=== PATIENT | male | born 1990 | race Caucasian/White ===

== ENCOUNTER 2017-11-12 16:27 | Emergency (ER) | payer OTHER ==
[~2017-11-12] VITALS: Ht 177.8 cm; Wt 144.0 kg
[~2017-11-12 16:27] MED LIST: CEPH500C3 PO
[2017-11-12 16:37] VITALS: BP 173/112; PULSE 115; RESP 20; TEMP 98.5; O2SAT 97
[2017-11-12] MEDS ORDERED: PROPARACAINE HCL 0.5% OPHT SOLN 15 ML BTL EACH EYE ONE (18:45)
[2017-11-12] MEDS ORDERED: ERYTOIN10 RIGHT EYE (18:51)
[2017-11-12] MEDS ORDERED: AUGM875T3 PO (18:51)
--- NOTE | 2017-11-12 18:54 | PD ---
HPI Chief Complaint: Eye Problems/Injury Time Seen by Provider: 18:36 Travel History International Travel<30 days: No Contact w/Intl Traveler<30days: No Traveled to known affect area: No History of Present Illness HPI 26-year-old male presents emergency department with a foreign body sensation of the right eye after getting plaster in his eye from work today that occurred just prior to arrival. States that he was able to remove a couple of pieces of plaster but was still having the foreign body sensation decided to come in today. States he was able to irrigate his eye. Patient denies photophobia, pain with extraocular movements, headache. States most of his discomfort is located in the upper eyelid. Denies visual changes. PFSH Past Medical History Medical History: Denies Significant Hx Diminished Hearing: No Immunizations Current: Yes Tetanus Vaccination: Unknown Influenza Vaccination: No Past Surgical History Surgical History: No Previous Surgery Social History Alcohol Use: No Tobacco Use: No Substance Use: No Allergies-Medications (Allergen,Severity, Reaction): Coded Allergies: midazolam (Unverified Allergy, Mild, MAKES HIM CRAZY, 05/31/17) Reported Meds & Prescriptions Reported Meds & Active Scripts Active Augmentin (Amoxicillin-Clavulanate) 875-125 Mg Tab 1 Tab PO BID 7 Days Erythromycin Opth Oint 5 Mg/Gm Oint 1 Applic RIGHT EYE BID 5 Days Keflex (Cephalexin Monohydrate) 500 Mg Cap 500 Mg PO QID Review of Systems Except as stated in HPI: all other systems reviewed are Neg Physical Exam Narrative GENERAL: Well-developed well-nourished in no apparent distress SKIN: Focused skin assessment warm/dry. HEAD: Atraumatic. Normocephalic. EYES: Pupils equal and round. Scleral injection right eye White discharge from eye (plaster vs bacterial), visual acuity 20/25L, 20/25R, 20/30OU, EOMI without pain, upper eyelid mildly erythematous with slight edema ENT: No nasal bleeding or discharge. Mucous membranes pink and moist. NECK: Trachea midline. No JVD. No lymphadenopathy MUSCULOSKELETAL: No obvious deformities. No clubbing. No cyanosis. No edema. NEUROLOGICAL: Awake and alert. No obvious cranial nerve deficits. Motor grossly within normal limits. Normal speech. PSYCHIATRIC: Appropriate mood and affect; insight and judgment normal. Data Data Last Documented VS Vital Signs Date Time Temp Pulse Resp B/P (MAP) Pulse Ox O2 Delivery O2 Flow Rate FiO2 11/12/17 16:37 98.5 115 20 173/112 (132) 97 Orders Orders Proparacaine 0.5% Opth Soln (Alcaine 0.5 (11/12/17 18:45) Ed Discharge Order (11/12/17 18:54) MDM Medical Decision Making Medical Screen Exam Complete: Yes Emergency Medical Condition: Yes Differential Diagnosis Foreign body right eye, corneal abrasion, corneal ulcer Narrative Course 26-year-old male presents emergency department with a foreign body sensation of the right eye after getting plaster in his eye from work today that occurred just prior to arrival. States that he was able to remove a couple of pieces of plaster but was still having the foreign body sensation decided to come in today. States he was able to irrigate his eye. Patient denies photophobia, pain with extraocular movements, headache. States most of his discomfort is located in the upper eyelid. Denies visual changes. Patient does not wear glasses or contacts. Vital signs stable. Physical exam demonstrates a slightly anxious 26-year-old male. Right eyes scleral injection, eyelid demonstrates white substance that is somewhat liquefied and difficult to remove with cotton swab. No fluorescein uptake on staining, Sidel's sign negative. I'm concerned about patient developing a preseptal cellulitis as he does have a history of foreign body to the eyelid and the eyelid is mildly erythematous with edema. Patient prescribed Augmentin and topical eye antibiotics. 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 He may continue to irrigate his eye with clean, Cool water. Return to the emergency department for worsening or persistent symptoms. Patient states understanding and will comply. Diagnosis Primary Impression: Foreign body of eyelid, right Referrals: Headrig Sawyer Additional Instructions: Follow-up with an eye doctor within 2-3 days. Take all medications as prescribed. If your symptoms persist or worsen return to the emergency department. Scripts Amoxicillin-Clavulanate (Augmentin) 875-125 Mg Tab 1 TAB PO BID for Infection for 7 Days, #14 TAB 0 Refills Prov: Gloria Arenas 11/12/17 Erythromycin Opth Oint (Erythromycin Opth Oint) 5 Mg/Gm Oint 1 APPLIC RIGHT EYE BID for Infection for 5 Days, #1 TUBE 0 Refills Prov: Gloria Arenas 11/12/17 Disposition: 01 DISCHARGE HOME Condition: Stable Gloria Arenas Nov 12, 2017 18:54
== END 2017-11-12 19:02 | disposition home or self-care (01) ==
LOC: PHEFT 16:27
DX: T15.11XA Foreign body in conjunctival sac, right eye, initial encounter (principal); Y99.0 Civilian activity done for income or pay
CPT/HCPCS: 99284